=== PATIENT | female | born 1950 | race Caucasian/White ===

== ENCOUNTER 2023-03-20 22:15 | Inpatient (IN) | payer BC ==
[~2023-03-20] VITALS: Ht 157.5 cm; Wt 97.1 kg
[2023-03-20 23:11] LABS: BASO % 0.6 % (0.0-1.0); EOS # 0.3 10^3/uL (0.0-0.5); EOS % 4.7 % (0.0-3.0); LYMPH # 1.7 10^3/uL (1.5-5.0); LYMPH % 23.3 % (24.0-44.0); MEAN CORPUSCULAR HGB CONC 32.4 g/dl (32.0-36.5); MEAN CORPUSCULAR VOLUME 95.8 fl (80.0-96.0); MONO # 0.6 10^3/uL (0.0-0.8); MONO % 8.9 % (2.0-8.0); NEUTROPHILS # 4.4 10^3/uL (1.5-8.5); NEUTROPHILS % 62.2 % (36.0-66.0); PLATELET COUNT, AUTOMATED 194 10^3/uL (150-450); RED BLOOD COUNT 3.55 10^6/uL (4.00-5.40); WHITE BLOOD COUNT 7.1 10^3/uL (4.0-10.0)
[2023-03-20 23:36] LABS: CPK CREATINE PHOSPHOKINASE 134 U/L (34-145)
[2023-03-20 23:38] LABS: ALBUMIN 3.9 G/DL (3.2-5.2); ALKALINE PHOSPHATASE 79 U/L (46-116); ALT/SGPT 18 U/L (7.0-40); AST/SGOT 10 U/L (<34); BILIRUBIN,DIRECT < 0.1 MG/DL (<0.4); BILIRUBIN,TOTAL < 0.2 MG/DL (0.3-1.2); BLOOD UREA NITROGEN 103 MG/DL (9-23); CALCIUM LEVEL 8.4 MG/DL (8.3-10.6); CARBON DIOXIDE LEVEL 14 MMOL/L (20-31); CHLORIDE LEVEL 110 MMOL/L (98-107); CK-MB VALUE MASS 1.3 NG/ML (<3.6); CREATININE FOR GFR 4.49 MG/DL (0.55-1.30); GLOMERULAR FILTRATION RATE 10.3 (>39); GLUCOSE, FASTING 105 MG/DL (74-106); MB/CK RELATIVE INDEX 0.97 (< OR =4); POTASSIUM SERUM 4.6 MMOL/L (3.5-5.1); SODIUM LEVEL 139 MMOL/L (136-145); TOTAL PROTEIN 7.4 G/DL (5.7-8.2)
[2023-03-20 23:39] LABS: THYROID STIMULATING HORMONE 2.429 uIU/ML (0.55-4.78)
[2023-03-20 23:45] LABS: RSV AMPLIFICATION NEGATIVE (NEGATIVE)
[2023-03-21] MEDS ORDERED: NS 1,000 ML IV ONE (01:50)
[2023-03-21] MEDS ORDERED: GABA-1171 PO (03:27)
[2023-03-21] MEDS ORDERED: ATOR1TAB19 PO (03:27)
[2023-03-21] MEDS ORDERED: VITA100093 PO (03:27)
[2023-03-21] MEDS ORDERED: LEVO75TA4 PO (03:27)
[2023-03-21] MEDS ORDERED: LISI20TA37 PO (03:27)
[2023-03-21] MEDS ORDERED: BUPR-71 PO (03:27)
[2023-03-21] MEDS ORDERED: DICL100G10 TOP (03:27)
[2023-03-21] MEDS ORDERED: DULO1CAP6 PO (03:27)
[2023-03-21] MEDS ORDERED: TALT80IN7 PO (03:27)
[2023-03-21] MEDS ORDERED: BISO1TAB17 PO (03:27)
[2023-03-21] MEDS ORDERED: CLOBETASOL TOP (03:27)
[2023-03-21] MEDS ORDERED: ZALE10CA PO (03:27)
[2023-03-21] MEDS ORDERED: HYDR-3719 PO (03:27)
[2023-03-21] MEDS ORDERED: HOME MED LIST COMPLETE! XX SCH (03:30)
[2023-03-21] MEDS: NS 1,000 ML IV SCH ×2 (03:53→07:42)
[2023-03-21] MEDS: LEVOTHYROXINE 75MCG TABLET (0.075MG) PO SCH (04:11)
[2023-03-21] MEDS: NORCO, ANEXSIA 5/325MG TABLET (HYDROcodone/ACETAMINOPHEN) PO PRN ×3 (04:12→21:38)
[2023-03-21] MEDS: HEPARIN SOD (PORCINE) 5000UNITS/ML 1ML VIAL/SYRINGE SC SCH ×3 (04:13→21:32)
[2023-03-21 04:30] LABS: APPEARANCE, URINE CLEAR (CLEAR); BACTERIA, URINE AUTO NEGATIVE (NEGATIVE); BILIRUBIN, URINE AUTO NEGATIVE (NEGATIVE); BLOOD, URINE BLOOD NEGATIVE (NEGATIVE); COLOR, URINE YELLOW (YELLOW); GLUCOSE, URINE (UA) AUTO NEGATIVE (NEGATIVE); KETONE, URINE AUTO NEGATIVE (NEGATIVE); LEUKOCYTE ESTERASE, URINE AUTO TRACE (NEGATIVE); NITRITE, URINE AUTO NEGATIVE (NEGATIVE); PROTEIN, URINE AUTO 1+ mg/dL (NEGATIVE); RBC, URINE AUTO 0 /HPF (0-3); SPECIFIC GRAVITY URINE AUTO 1.014 (1.002-1.035); SQUAMOUS EPITHELIAL CELL UR AU 0 /HPF (0-6); UROBILINOGEN, URINE AUTO 0.2 mg/dL (0.0-2.0); WBC, URINE AUTO 2 /HPF (0-3)
[2023-03-21 04:55] LABS: SODIUM,RANDOM URINE 63 MMOL/L
[2023-03-21 05:00] LABS: TOTAL PROTEIN,RANDOM URINE 64.4 MG/DL (0.0-14.0)
[2023-03-21 05:05] LABS: CREATININE,RANDOM URINE 98.8 MG/DL
[2023-03-21 06:56] LABS: VENOUS BASE EXCESS -14.4 (-2.0-2.0); VENOUS HCO3 11.7 MMOL/L (23.0-27.0); VENOUS O2 SATURATION 98.8 % (60.0-80.0); VENOUS PARTIAL PRESSURE CO2 28.4 mmHg (38.0-50.0); VENOUS PH 7.234 UNITS (7.330-7.430); VENOUS STANDARD HCO3 13.4 MMOL/L; VENOUS TOTAL CO2 12.6 MMOL/L (24.0-28.0)
[2023-03-21 07:05] LABS: HEMATOCRIT 30.9 % (36.0-47.0); HEMOGLOBIN 9.8 g/dl (12.0-15.5); MEAN CORPUSCULAR HEMOGLOBIN 30.2 pg (27.0-33.0); MEAN CORPUSCULAR HGB CONC 31.7 g/dl (32.0-36.5); MEAN CORPUSCULAR VOLUME 95.4 fl (80.0-96.0); PLATELET COUNT, AUTOMATED 175 10^3/uL (150-450); RED BLOOD COUNT 3.24 10^6/uL (4.00-5.40); WHITE BLOOD COUNT 5.4 10^3/uL (4.0-10.0)
[2023-03-21] MEDS: ACETAMINOPHEN TAB 650MG DOSE (2X325MG) PO PRN (07:34)
[2023-03-21 07:41] LABS: BLOOD UREA NITROGEN 94 MG/DL (9-23); CALCIUM LEVEL 8.2 MG/DL (8.3-10.6); CARBON DIOXIDE LEVEL 14 MMOL/L (20-31); CHLORIDE LEVEL 114 MMOL/L (98-107); CREATININE FOR GFR 3.11 MG/DL (0.55-1.30); GLOMERULAR FILTRATION RATE 15.7 (>39); GLUCOSE, FASTING 107 MG/DL (74-106); MAGNESIUM LEVEL 2.1 MG/DL (1.8-2.4); PHOSPHORUS LEVEL 6.2 MG/DL (2.4-5.1); POTASSIUM SERUM 4.6 MMOL/L (3.5-5.1); SODIUM LEVEL 141 MMOL/L (136-145)
[2023-03-21 08:25] LABS: IRON (FE) 29 UG/DL (50-170); PERCENT SATURATION 10.5 % (13.2-45.0); TOTAL IRON BINDING CAPACITY 276 UG/DL (250-425)
[2023-03-21 08:28] LABS: FERRITIN 105.9 NG/ML (7.3-270.7); VITAMIN B12 LEVEL 1826 PG/ML (211-911)
[2023-03-21 08:29] LABS: FOLATE > 24.0 NG/ML (>5.4)
[2023-03-21] MEDS: GABAPENTIN 100 MG CAP PO SCH ×3 (09:33→21:32)
[2023-03-21] MEDS: DULoxetine 30MG CAPSULE (CYMBALTA) PO SCH (09:33)
[2023-03-21] MEDS: ATORVASTATIN 10 MG TAB PO SCH (09:33)
[2023-03-21] MEDS: NS 0.45% 1,000 ML IV SCH ×3 (09:41→19:15)
[2023-03-21] MEDS: BISOPROLOL FUM 2.5 MG PER 1/2TAB PO SCH (10:50)
[2023-03-21] MEDS: buPROPion **SR TABLET** (ZYBAN) 150MG PO SCH ×2 (10:50→21:32)
[2023-03-21] MEDS: SODIUM BICARBONATE 325 MG TAB PO SCH ×2 (10:51→21:33)
[2023-03-21 11:05] VITALS: BP 139/71; TEMP 97.9; O2SAT 98
[2023-03-21 14:00] VITALS: BP 126/73; TEMP 97.9; O2SAT 99
[2023-03-21 21:00] VITALS: BP 126/85; TEMP 97.3; O2SAT 98
[2023-03-21] MEDS: MICONAZOLE TOPICAL 2% CREAM 15GM EXT SCH (21:33)
[2023-03-22] MEDS: NS 0.45% 1,000 ML IV SCH (03:37)
[2023-03-22] MEDS: NORCO, ANEXSIA 5/325MG TABLET (HYDROcodone/ACETAMINOPHEN) PO PRN ×4 (03:37→22:01)
[2023-03-22 05:12] VITALS: BP 132/85; TEMP 97; O2SAT 97
[2023-03-22] MEDS: LEVOTHYROXINE 75MCG TABLET (0.075MG) PO SCH (05:33)
[2023-03-22] MEDS: HEPARIN SOD (PORCINE) 5000UNITS/ML 1ML VIAL/SYRINGE SC SCH ×3 (05:34→22:01)
[2023-03-22 06:18] LABS: BASO % 0.8 % (0.0-1.0); EOS # 0.3 10^3/uL (0.0-0.5); EOS % 5.8 % (0.0-3.0); HEMATOCRIT 29.3 % (36.0-47.0); HEMOGLOBIN 9.7 g/dl (12.0-15.5); LYMPH # 1.8 10^3/uL (1.5-5.0); LYMPH % 34.1 % (24.0-44.0); MEAN CORPUSCULAR HEMOGLOBIN 30.9 pg (27.0-33.0); MEAN CORPUSCULAR HGB CONC 33.1 g/dl (32.0-36.5); MEAN CORPUSCULAR VOLUME 93.3 fl (80.0-96.0); MONO # 0.5 10^3/uL (0.0-0.8); MONO % 9.8 % (2.0-8.0); NEUTROPHILS # 2.6 10^3/uL (1.5-8.5); NEUTROPHILS % 49.3 % (36.0-66.0); PLATELET COUNT, AUTOMATED 174 10^3/uL (150-450); RED BLOOD COUNT 3.14 10^6/uL (4.00-5.40); WHITE BLOOD COUNT 5.3 10^3/uL (4.0-10.0)
[2023-03-22 06:44] LABS: CALCIUM LEVEL 8.3 MG/DL (8.3-10.6); CREATININE FOR GFR 1.41 MG/DL (0.55-1.30); POTASSIUM SERUM 3.9 MMOL/L (3.5-5.1)
[2023-03-22] MEDS: SODIUM BICARBONATE 325 MG TAB PO SCH ×2 (08:47→22:00)
[2023-03-22] MEDS: MICONAZOLE TOPICAL 2% CREAM 15GM EXT SCH ×2 (08:48→22:01)
[2023-03-22] MEDS: DULoxetine 30MG CAPSULE (CYMBALTA) PO SCH (08:48)
[2023-03-22] MEDS: GABAPENTIN 100 MG CAP PO SCH ×3 (08:48→22:00)
[2023-03-22] MEDS: ATORVASTATIN 10 MG TAB PO SCH (08:48)
[2023-03-22] MEDS: buPROPion **SR TABLET** (ZYBAN) 150MG PO SCH ×2 (09:53→21:59)
[2023-03-22] MEDS: BISOPROLOL FUM 2.5 MG PER 1/2TAB PO SCH (10:42)
[2023-03-22 14:00] VITALS: BP 119/68; TEMP 97.5; O2SAT 97
[2023-03-22] MEDS: ACETAMINOPHEN TAB 650MG DOSE (2X325MG) PO PRN (19:40)
[2023-03-22 20:00] VITALS: BP 140/98; TEMP 97.7; O2SAT 99
[2023-03-23 05:15] VITALS: BP 156/95; TEMP 98.1; O2SAT 97
[2023-03-23] MEDS: HEPARIN SOD (PORCINE) 5000UNITS/ML 1ML VIAL/SYRINGE SC SCH (05:23)
[2023-03-23] MEDS: LEVOTHYROXINE 75MCG TABLET (0.075MG) PO SCH (05:23)
[2023-03-23] MEDS: NORCO, ANEXSIA 5/325MG TABLET (HYDROcodone/ACETAMINOPHEN) PO PRN (05:23)
[2023-03-23 06:06] LABS: BASO % 0.5 % (0.0-1.0); EOS # 0.3 10^3/uL (0.0-0.5); EOS % 4.7 % (0.0-3.0); HEMATOCRIT 32.7 % (36.0-47.0); HEMOGLOBIN 10.8 g/dl (12.0-15.5); LYMPH # 2.1 10^3/uL (1.5-5.0); LYMPH % 34.5 % (24.0-44.0); MEAN CORPUSCULAR HEMOGLOBIN 30.3 pg (27.0-33.0); MEAN CORPUSCULAR VOLUME 91.6 fl (80.0-96.0); MONO # 0.6 10^3/uL (0.0-0.8); MONO % 9.8 % (2.0-8.0); PLATELET COUNT, AUTOMATED 211 10^3/uL (150-450); RED BLOOD COUNT 3.57 10^6/uL (4.00-5.40)
[2023-03-23 06:31] LABS: CREATININE FOR GFR 1.1 MG/DL (0.55-1.30)
[2023-03-23] MEDS: DULoxetine 30MG CAPSULE (CYMBALTA) PO SCH (08:37)
[2023-03-23] MEDS: ATORVASTATIN 10 MG TAB PO SCH (08:37)
[2023-03-23] MEDS: SODIUM BICARBONATE 325 MG TAB PO SCH (08:37)
[2023-03-23] MEDS: GABAPENTIN 100 MG CAP PO SCH (08:37)
[2023-03-23] MEDS: MICONAZOLE TOPICAL 2% CREAM 15GM EXT SCH (08:38)
[2023-03-23] MEDS ORDERED: AMLO1TAB25 PO (09:09)
[2023-03-23 09:35] VITALS: BP 156/95
[2023-03-23] MEDS: BISOPROLOL FUM 2.5 MG PER 1/2TAB PO SCH (09:35)
[2023-03-23] MEDS: buPROPion **SR TABLET** (ZYBAN) 150MG PO SCH (09:35)
== END 2023-03-23 12:00 | disposition home or self-care (01) | DRG 469 ==
LOC: M ED 22:15 → M ED INP 03-21 03:32 → ENRESERV 03-21 10:08 → M MSPAV 03-21 11:06
PROVIDERS: ADMIT Internal Medicine; ATTEND Internal Medicine Nephrology
DX: N17.9 Acute kidney failure, unspecified (principal); E87.20 Acidosis, unspecified; D64.9 Anemia, unspecified; K76.0 Fatty (change of) liver, not elsewhere classified; M06.9 Rheumatoid arthritis, unspecified; E03.9 Hypothyroidism, unspecified; E78.5 Hyperlipidemia, unspecified; F32.A Depression, unspecified; F41.9 Anxiety disorder, unspecified; I12.9 Hypertensive chronic kidney disease with stage 1 through stage 4 chronic kidney disease, or unspecified chronic kidney disease; R29.6 Repeated falls; R53.1 Weakness; K57.90 Diverticulosis of intestine, part unspecified, without perforation or abscess without bleeding; E55.9 Vitamin D deficiency, unspecified; Z86.718 Personal history of other venous thrombosis and embolism; Z86.711 Personal history of pulmonary embolism; K40.90 Unilateral inguinal hernia, without obstruction or gangrene, not specified as recurrent; Z88.2 Allergy status to sulfonamides; Z79.899 Other long term (current) drug therapy; Z98.41 Cataract extraction status, right eye; Z98.42 Cataract extraction status, left eye; K80.20 Calculus of gallbladder without cholecystitis without obstruction; N18.30 Chronic kidney disease, stage 3 unspecified